=== PATIENT | female | born 1960 ===

== ENCOUNTER 2017-07-24 09:54 | Emergency (ER) | payer SELFPAY ==
[2017-07-24 10:46] VITALS: BP 118/78
--- NOTE | 2017-07-25 00:47 | UC ---
Skin Complaint HPI - HPI Summary HPI Summary: 56 y/o female presents to the urgent care accompany by daughter who translates for her at times. Pt c/o of red rash on her groin area w/ itches for the past 4 days. Pt has not apply anything to relief symptoms. Pt dneis fever, pain, pelvic pain, lower back pain, urinary symptoms or vaginal discharge.No Hx of STD 's. - History of Current Complaint Chief Complaint: UCSkin Time Seen by Provider: 07/24/17 11:01 Stated Complaint: RASH Hx Obtained From: Patient, Family/Cushion Mat Maker - Daughter ?: No - Menopausal Onset/Duration: Gradual Onset, Lasting Days - 4 days, Still Present Skin Exposure Onset/Duration: Days Ago Timing: Constant Onset Severity: Mild Current Severity: Moderate Pain Intensity: 0 Pain Scale Used: 0-10 Numeric Location: Discrete - groin RT side Character: Pruritus, Redness Aggravating Factor(s): Touch Alleviating Factor(s): Nothing Associated Signs & Symptoms: Positive: Negative. Negative: Fever, Chills Related History: Possible Reaction to: Environmental Exposure - Allergy/Home Medications Allergies/Adverse Reactions: Allergies Allergy/AdvReac Type Severity Reaction Status Date / Time No Known Allergies Allergy Verified 07/24/17 10:46 Home Medications: Home Medications B-Complex Vitamins [Vitamin B Complex] 1 tab PO DAILY 07/24/17 [History Confirmed 07/24/17] Calcium Carbonate [Calcium] 1 tab PO DAILY 07/24/17 [History Confirmed 07/24/17] Levothyroxine TAB* [Synthroid 125 MCG TAB*] 1 tab PO DAILY 07/24/17 [History Confirmed 07/24/17] Review of Systems Constitutional: Negative Skin: Rash - at the Rt side of groin Eyes: Negative ENT: Negative Respiratory: Negative Cardiovascular: Negative Gastrointestinal: Negative Genitourinary: Negative Motor: Negative Neurovascular: Negative Musculoskeletal: Negative Neurological: Negative Psychological: Negative Is Patient Immunocompromised?: No All Other Systems Reviewed And Are Negative: Yes PMH/Surg Hx/FS Hx/Imm Hx Previously Healthy: Yes Endocrine History: Hypothyroidism - Surgical History Surgical History: Yes Surgery Procedure, Year, and Place: Thyroidectomy - Family History Known Family History: Positive: Diabetes - Social History Occupation: Unemployed Lives: With Family Alcohol Use: None Substance Use Type: None Smoking Status (MU): Never Smoked Tobacco - Immunization History Most Recent Influenza Vaccination: Not UTD Physical Exam Triage Information Reviewed: Yes Vital Signs: Initial Vital Signs Temp 98.3 F 07/24/17 10:36 Pulse 67 07/24/17 10:36 Resp 16 07/24/17 10:36 BP 118/78 07/24/17 10:36 Pulse Ox 99 07/24/17 10:36 - Additional Comments Vital Signs Reviewed: Yes General: well developed, well nourished female sitting in the examining table w/ o any apparent distress Eye Exam: Normal Eyes: Positive: Conjunctiva Clear - PERRLA, EOMI, fundi grossly normal ENT: Positive: Normal ENT inspection, Hearing grossly normal, Pharynx normal, TMs normal Neck: Positive: Supple, Nontender, No Lymphadenopathy Respiratory: Positive: Chest non-tender, Lungs clear, Normal breath sounds, No respiratory distress Cardiovascular: Positive: RRR, No Murmur, Pulses Normal, Brisk Capillary Refill Abdomen Description: Positive: Nontender, No Organomegaly, Soft. Negative: CVA Tenderness (R), CVA Tenderness (L) Bowel Sounds: Positive: Present Musculoskeletal: Positive: Strength Intact, ROM Intact, No Edema Neurological: Positive: Alert, Muscle Tone Normal Psychological Exam: Normal Skin: Positive: erythematous maculopapular eruption with signs of scoriation, non tender to palpation, no swelling,about 2cmx 2.5cm in size. localized at the lateral side of RT labia majora and proximal medial aspect of the RT thigh Course/Dx - Course Course Of Treatment: 56 y/o female presents to the urgent care accompany by daughter who translates for her at times. Pt c/o of red rash on her groin area w / itches for the past 4 days. Pt has not apply anything to relief symptoms. Pt dneis fever, pain, pelvic pain, lower back pain, urinary symptoms or vaginal discharge.No Hx of STD's. Hx obtained. Pt with a pruritic erythematous maculopapular eruption in the lateral side of the RT labia majora on examination. Probably a contact dermatitis. Pt Rx Triamcinolone topical cream and Benadryl to alleviate symptoms. Advised if not resolution of symptoms in 3 days to f/u with PCP or /vocational rehabilitation administrator for further evaluation. Mother understood and agreed with plan of care. - Differential Diagnoses - Skin Complaint Differential Diagnoses: Abscess, Allergic Reaction, Cellulitis, Contact Dermatitis, Local Allergic Reaction, MRSA, Tinea, Urticaria, Other - silver intertrigo - Diagnoses Provider Diagnoses: 1- unspecified rash. 2-Pruritus Discharge - Discharge Plan Condition: Stable Disposition: HOME Prescriptions: diPHENhydraMINE PO* [Benadryl PO 25 MG TAB*] 25 mg PO TID PRN #15 tab PRN Reason: pruritus Triamcinolone 0.1% CREAM (NF) [Kenalog 0.1% Cream (NF)] 1 applic TOPICAL BID #1 tube Patient Education Materials: Acute Rash (ED) Referrals: [facility] [[facility]] - 1 Week Nash Pedro MD [Medical Doctor] - If Needed Additional Instructions: 1-Please apply medication as directed. 2-Take Benadryl PO as directed for itchiness. Please do not drive while taking medication 3-If symptoms do not improve or worsen please f/u with your PCP or return to the urgent care for further evaluation and treatment.
== END 2017-07-24 11:26 | disposition home or self-care (01) ==
LOC: UCEAST 09:54
DX: R21 Rash and other nonspecific skin eruption (principal); L29.9 Pruritus, unspecified; E03.9 Hypothyroidism, unspecified
CPT/HCPCS: 99202; G0463